=== PATIENT | male | born 1980 | race Caucasian/White ===

== ENCOUNTER 2020-11-28 08:43 | Outpatient (CLI) | payer MEDICARE, SELFPAY ==
[2020-11-28] MEDS: iohexol 300 mg/mL 100 mL Btl IV (09:59)
--- NOTE | 2020-11-28 10:00 | CT_ITS ---
WS: [id number] CT ABDOMEN AND PELVIS WITH CONTRAST HISTORY: K43.9 - Ventral hernia without obstruction or gangrene TECHNIQUE: Imaging performed of the abdomen and pelvis with IV contrast. Single phase imaging of the abdomen. Coronal and sagittal reformats are submitted. All CT scans at [facility] use at least one of these dose optimization techniques: automated exposure control; mA and/or kV adjustment per patient size (includes targeted exams where dose is matched to clinical indication); or iterativ e reconstruction. IV CONTRAST: Omnipaque 300; 95 mL IV. Oral contrast: Yes. DLP: 1140.88 mGycm COMPARISON: None available. Lower thorax: Linear scar or atelectasis at the RIGHT lung base. Heart is normal size. No hiatal saray ia. Liver/biliary system: Normal size liver. Low-attenuation 8 mm nodule in the central liver is probably small cysts. Portal vein is patent. No bile duct dilatation. Gallbladder: Gallbladder is slightly contracted. Within the gallbladder there is an enhancing nodule measuring 4.7 mm. No adjacent inflammation. Pancreas: Normal. Spleen: Normal. Adrenal glands: Normal. Right kidney: Normal size kidney. Cyst in the mid kidney measures 2.0 cm. There is a nonobstructing c alcification in the mid kidney measuring 5 mm. No solid mass or obstruction. Left kidney: Normal. Aorta: Mild atherosclerosis with no aneurysm. Lymphadenopathy: None. Free fluid: None. GI tract: No GI tract obstruction. The appendix is normal. Postsurgical changes are noted in the sigm oid. There is no obstructive pattern. No soft tissue mass or significant diverticular disease. Abdominal wall: Ventral abdominal wall hernia contains fat only. Hernia extends over length of 6 cm. Several small defects within the abdominal wall. No definite inflammatory changes within the omental fat. No abscess. Pelvis: Normal. Bones: Prior posterior lumbar fusion at L3-4. Mild RIGHT scoliosis of the lumbar spine. CT/CT abdomen pelvis w con* [id number] IMPRESSION: 1. Hepatic and RIGHT renal cysts. 2. Slightly contracted gallbladder with enhancing nodule measuring 5 mm. Recom mend follow-up gallbladder ultrasound for further evaluation. Polyp or neoplasm or adherent gallstone within the differential. 3. Postsurgical changes in the sigmoid with no mass or obstruction. 4. Ventral abdominal wall omental hernias. 5. Negative appendix.
== END 2020-11-28 08:44 | disposition home or self-care (01) ==
LOC: RADWPI 08:49
PROVIDERS: PCP Family Medicine; Visit Provider Surgery
DX: K43.9 Ventral hernia without obstruction or gangrene (principal); K76.89 Other specified diseases of liver; Q61.02 Congenital multiple renal cysts
CPT/HCPCS: 74177; Q9967

== ENCOUNTER 2020-12-18 07:55 | Outpatient (CLI) | payer MEDICARE, SELFPAY ==
--- NOTE | 2020-12-18 08:45 | US_ITS ---
WS: [id number] RIGHT UPPER QUADRANT ULTRASOUND HISTORY: R10.9 - Unspecified abdominal pain COMPARISON: CT 11/28/2020 Liver: 18.1 cm in length. Mildly enlarged liver. Cyst is not identified within the liver. No bile magalie t dilatation. Gallbladder: Normally distended gallbladder. There is a soft tissue nodule towards the fundus of the gallbladder measuring 1.0 x 1.0 x 0.8 cm. Broad-based attachment to the wall of the gallbladder. Ther e is increased vascularity within this nodule. There is also a ring down artifact in the wall of the gallbladder suggesting adenomyomatosis. CBD: 0.2 cm Pancreas: Poorly visualized due to bowel gas. Right kidney: 11.3 cm in length. Normal size kidney. Simple cyst in the upper pole measures 1.5 x 1.8 x 1.6 cm. No hydronephrosis. Aorta and IVC: Unremarkable abdominal aorta and IVC. No ascites. US/US gall bladder [id number] IMPRESSION: 1. Gallbladder mass is probably a polyp. Due to its size consider surgical rem oval to exclude neoplasm. 2. Ring down artifact in the gallbladder wall suggesting adenomyomatosis. No c holelithiasis. 3. RIGHT renal cyst.
== END 2020-12-18 07:56 | disposition home or self-care (01) ==
LOC: US 08:00
PROVIDERS: PCP Family Medicine; Visit Provider Surgery
DX: R10.9 Unspecified abdominal pain (principal); N28.1 Cyst of kidney, acquired
CPT/HCPCS: 76705

== ENCOUNTER → 2021-01-01 10:45 | Outpatient (BNVA) | payer MEDICARE, SELFPAY | PROVIDERS: PCP Family Medicine; Visit Provider Surgery | DX: K82.4 Cholesterolosis of gallbladder (principal) | CPT/HCPCS: 80053; 85007; 85027 ==

== ENCOUNTER → 2021-01-11 09:58 | Outpatient (BNVA) | payer MEDICARE, SELFPAY | PROVIDERS: PCP Family Medicine; Visit Provider Surgery | DX: K82.4 Cholesterolosis of gallbladder (principal); Z20.822 Contact with and (suspected) exposure to COVID-19 | CPT/HCPCS: 87635 ==

== ENCOUNTER 2021-01-16 06:16 | Day surgery (SDC) | payer MEDICARE, SELFPAY ==
[2021-01-15 15:56] VITALS: BMI 26.6
[2021-01-16] VITALS (7 sets, daily range): BP systolic 117–143; BP diastolic 64–96; PULSE 66–83; RESP 16–18; TEMP 36.1–36.6; O2SAT 93–98
[2021-01-16] MEDS: acetaminophen 1,000 MG/100 ML PIGGYBACK 400 MG IV (06:45)
--- NOTE | 2021-01-16 06:51 | ANES.PREANE2 ---
Pre-Anesthetic Assessment Pre-Anesthetic Assessment: Height/Weight: Height 1.73 m Weight 79.379 kg Temp Pulse Resp BP Pulse Ox 97.8 F 83 18 117/64 96 01/16/21 06:30 01/16/21 06:30 01/16/21 06:30 01/16/21 06:30 01/16/21 06:30 Preop Diagnosis: Gallbladder polyp Proposed Procedure: Operation Date: 01/16/21 08:00 Proposed Procedures p Laparoscopic Cholecystectomy 83263 K82.4(Not Applicable) - Zeke Hill MD Familial anesthetic complications: None Was Beta Sivan taken within 24 hours: N/A (Takes metoprolol prn for anxiety/palpitations (maybe 1x a week, 1x a month)) Was Clonidine taken within 24 hours: N/A Last intake: black coffee 023 Social: Social History: Tobacco and No alcohol Exam: Pre-Anes Outpt Exam: alert, oriented x 3, clear to auscultation bilaterally and regular rate & rhythm Airway: Cervical ROM: WNL MP: 3 Dentition: Full Additional comments: garcia CV/HEM: CV/HEM: HTN Neuropsych: Neuropsych: Anxiety Anesthetic Plan: ASA status: 2 Anesthesia: General Risk of > 500 ml blood loss (7ml/kg in children): No PFSH Anesthesia PFSH: Medical History Anxiety Diverticulitis Hernia HTN (hypertension) Skin cancer of face Surgical History History of back surgery Family History Father Cancer Grandmother Cancer Other Diabetes Social History Smoking and tobacco status: current every day smoker cigarettes Packs smoked per day: 0.5 Years cigarettes smoked: 22 Alcohol intake: never Lives independently: Yes Marital status: Single Number of children: 0 Current occupational status: disabled Data Anesthesia Cardiac Studies: No Data to Display
[2021-01-16] MEDS: sodium chloride 0.9% 1,000 ML 30 ML IV (07:22)
--- NOTE | 2021-01-16 08:16 | W.PM.OPSUD ---
Surgery/Procedure H&P Update DATE OF PROCEDURE: January 16, 2021 DATE H&P PERFORMED: 12/28/20 H&P UPDATE INFORMATION: I have reviewed H&P completed within last 30 days, I have examined patient prior to procedure and No changes to prior documentation PREOP DIAGNOSIS: Gallbladder polyp PRIMARY INDICATION FOR PROCEDURE: THE SAME PLANNED PROCEDURE: Operation Date: 01/16/21 08:00 Proposed Procedures p Laparoscopic Cholecystectomy 00512 K82.4(Not Applicable) - Zeke Hill MD
[2021-01-16] MEDS: ampicillin-sulbactam 3 GM in sodium chloride 0.9% (plus) 50 ML IV (08:21)
[2021-01-16] MEDS: lidocaine 2% INJ 20 mL INJECTION (09:12)
--- NOTE | 2021-01-16 09:22 | PM.OP ---
Operative Report Date of procedure: January 16, 2021 Pre-op Diagnosis: Gallbladder polyp Post-op Diagnosis: Chronic calculus cholecystitis Ventral incisional hernia without complication Procedure Done: Laparoscopic cholecystectomy Specimens removed/disposition: Gallbladder and contents Surgeon: Zeke Hill Sharepoint Administrator: Surgical yanely Zavala Circulating nurse Brittney Lawrence Anesthesia: General (Cayden Marrero) Estimated blood loss (mL): 10 IV fluids (mL): 1,000 Condition: stable Disposition: same day Brief History: Symptomatic gallbladder disease. Full H&P and informed consent per chart Procedure: Patient was identified in the holding area and taken back to the operative suite, placed in supine position intubated by anesthesia . Time-out was done verifying the patient's name/date of /planned procedure and destination after the procedure, all were in agreement. SCDs confirmed to be functioning, preoperative antibiotics administered per protocol, and beta mane protocol was confirmed. Patient was appropriately secured to the table, footboard was applied to the OR table, before prep and drape anesthesia was asked to tilt the table back and forth to make sure that the patient is appropriately secured and she was. Prep and drape of the abdomen was done under the usual sterile technique, followed by that left upper quadrant incision to accommodate a 5 mm Optiview trocar with a 0 degree 5 mm scope following gas insufflation, I elected that approach because of the patient's previous history of ventral incisional hernia and to avoid adhesions. I was able to enter the peritoneal cavity safely without injury to underlying structures or bleeding. Following that under direct visualization Flores trocar was inserted above the previous adhesions mentioned of the hernia A 10 mm laparoscope 30 degree under direct visualization 5 millimeter trocar was inserted in the epigastric region followed by an at the 5 mm trocar were inserted in the right upper quadrant that was done after injection of local lidocaine 2% at all incision sites. Gallbladder showed chronic calculus cholecystitis with adhesions Patient was then positioned in the head up and tilted to the left Ratcheted forceps were introduced into the lateral most 5mm port and was applied unto the fundus of the gallbladder cephalad and using Bullet forceps the infundibulum of the gallbladder was retracted laterally. Using [place] forceps then L-hook cautery to dissect the peritoneum overlying the Calot's triangle which was then opened medially and laterally until the cystic duct and the cystic artery were skeletonized. Dissection was carried along the body of the gallbladder and after ensuring critical view of safety was identfied. Cystic duct and cystic artery where seen connected to the gallbladder. Clips were applied on the cystic duct towards the common bile duct 1 towards the gallbladder then divided is in sharp scissors, 2 clips were then applied onto the cystic artery and 1 towards the gallbladder and divided by sharp scissors. Dissection was then carried along of the gallbladder from the gallbladder fossa using cautery as well as sharp dissection with heat energy. The gallbladder then was dissected out from the gallbladder fossa totally , cholecystectomy was then achieved and was placed in an Endo Catch bag and then retrieved from the Flores trocar site under direct visualization using a 5 mm 30? scope through the epigastric trocar, specimen was then passed to the circulating nurse to go for permanent pathology,irrigation and hemostasis was done to the gallbladder fossa after hemostasis was secured, final survey laparoscopy was done that showed no injuries. 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 Gas was allowed to deflate,Trocars were then taken out under direct vision there was no evidence of bleeding Specimen was passed to the circulating nurse for permanent pathology. No drains were placed and the supraumbilical incision as well as all trocar sites were closed by 3-0 Vicryl followed by 4-0 Monocryl to approximate the skin edges of the supraumbilical incision, dressing was applied in the form of Dermabond and the patient patient got extubated and was taken to recovery area in a stable condition. Count of sponges, needles and instruments were completed at the end of the procedure I was present for the whole entire procedure.
--- NOTE | 2021-01-16 14:19 | ANE.PACU2 ---
Inpatient post-anesthesia follow up: Airway intact: Yes Vital signs: Temperature 97 F Pulse Rate 81 Respiratory Rate 18 Blood Pressure 119/81 Pulse Oximetry 96 Oxygen Delivery Me thod Room Air Oxygen Flow Rate 8 Fraction of Inspir ed Oxygen Hydration adequate: Yes Nausea and vomiting: No Pain level: 2 Mental status: Baseline
== END 2021-01-16 10:51 | disposition home or self-care (01) ==
PROVIDERS: PCP Family Medicine; Visit Provider Surgery
PROC: 0FT44ZZ Resection of Gallbladder, Percutaneous Endoscopic Approach (ICD-10-PCS; CPT 47562; principal; 2021-01-16 08:00)
DX: K80.10 Calculus of gallbladder with chronic cholecystitis without obstruction (principal); K43.2 Incisional hernia without obstruction or gangrene; I10 Essential (primary) hypertension; F41.9 Anxiety disorder, unspecified; F17.210 Nicotine dependence, cigarettes, uncomplicated
CPT/HCPCS: 47562; 49560; 88304; 96365; J0295; J0330; J2250; J2370; J2704; J2710; J3010; J3490; J7030

== ENCOUNTER → 2021-06-04 10:06 | Outpatient (BNVA) | payer MEDICARE, SELFPAY | PROVIDERS: PCP Family Medicine; Visit Provider Family Medicine | DX: I10 Essential (primary) hypertension (principal); K57.92 Diverticulitis of intestine, part unspecified, without perforation or abscess without bleeding; G89.29 Other chronic pain; M54.5 Low back pain; Z79.899 Other long term (current) drug therapy | CPT/HCPCS: 80053; 80061; 82306; 82607; 83735; 84443; 85025 ==

== ENCOUNTER → 2021-06-14 14:23 | Outpatient (BNVA) | payer MEDICARE, SELFPAY | PROVIDERS: PCP Family Medicine; Visit Provider Orthopaedic Surgery | DX: Z47.89 Encounter for other orthopedic aftercare (principal); Z98.1 Arthrodesis status | CPT/HCPCS: 72110 ==

== ENCOUNTER 2021-07-12 13:32 | Emergency (ER) | payer MEDICARE, SELFPAY ==
[2021-07-12 13:38] VITALS: BP 125/72; PULSE 88; RESP 16; TEMP 37.6; O2SAT 97
[2021-07-12 13:50] VITALS: BP 118/77; PULSE 83; RESP 16; TEMP 36.7; O2SAT 97
--- NOTE | 2021-07-12 14:00 | PC.NURSE ---
Pt arrived via POV with family at bedside. Pt states about a week ago one of his bottom teeth cracked and fell out, since then pt has been trying to get in to see a local dentist, however, there are no available appointments for at least 2 weeks. Pt rpeorts jaw pain, states it feels like he is being stabbed in the mouth. Pt reports the pain radiates up the left side of his face, into his nose, across his forhead and into his head. Pt rates pain 5/10. Vss, pt placed on monitor.
--- NOTE | 2021-07-12 14:02 | W.ED.GENADLT ---
HPI - General Adult General: Chief complaint: General Medical Stated complaint: Broke tooth on left side Time Seen by Provider: 07/12/21 13:42 History of Present Illness: HPI narrative: Patient is a 41-year-old male comes to the ED with dental pain. Patient has a tooth that broke over a week ago when today he noticed he started having radiating into his jaw. Broken tooth is left lower molar. He has been calling around to get an appointment set up with the dentist and he said he has one scheduled for about 2 weeks from now. Associated symptoms: Deny chest pain, dyspnea, headache(s), nausea, rash, palpitations or vomiting Review of Systems Const: Denies: fever(s), chills or fatigue Eyes: Denies: change in vision or eye discomfort ENMT: Reports: dental pain; Denies: throat pain, odynophagia, nasal discharge or nasal congestion Card: Denies: chest pain, palpitations, edema, swelling of feet/ankles, dyspnea on exertion or orthopnea Resp: Denies: dyspnea, productive cough or non-productive cough GI: Denies: abdominal pain, nausea, vomiting, diarrhea, constipation or hematochezia : Denies: flank pain, difficulty urinating, dysuria or hematuria Musc: Denies: neck pain, back pain or extremity swelling Skin/Breast: Denies: rash or new lesions Neuro: Denies: headache(s), numbness in extremities or weakness in extremities PFSH ED PFSH: Medical History Anxiety Diverticulitis Gallbladder polyp Hernia History of nonmelanoma skin cancer HTN (hypertension) Skin cancer of face Ventral hernia Surgical History History of back surgery History of bowel resection 2019 History of cholecystectomy 2020 History of colonoscopy 2016 History of umbilical hernia repair 2019 Family History Father Cancer Grandmother Cancer Other Diabetes Social History Smoking and tobacco status: current every day smoker cigarettes Packs smoked per day: 0.5 Years cigarettes smoked: 22 Second hand smoke exposure: Yes Alcohol intake: never Lives independently: Yes Marital status: Single Number of children: 0 service: No Current occupational status: disabled History of recent travel: No Current gender identity: Male Special elmo needs: No Physical Exam Const: COMMON NORMALS: no acute distress, patient oriented x3 and alert GENERAL APPEARANCE: cooperative and comfortable HENMT: COMMON NORMALS: normocephalic HEAD & SCALP: normocephalic MOUTH: Normal oral and palatal mucosa present TEETH & GINGIVA: Yes abnormal tooth and associated gingiva lower left third molar tender, with associated gingival edema and with associated gingival fluctuance, Yes caries and Yes poor dentition THROAT: posterior oropharynx normal and uvula midline Eye: COMMON NORMALS: Equal, round and reactive pupils present PUPIL: Yes Equal, round and reactive pupils present Neck/C-Spine: COMMON NORMALS: supple GENERAL: Yes normal visual inspection Resp: COMMON NORMALS: normal respiratory effort, No retractions, No use of accessory muscles and clear to auscultation bilaterally AUSCULTATION: clear to auscultation bilaterally Cardio: COMMON NORMALS: regular rate, regular rhythm, S1 normal heart sound present, S2 normal heart sound present, No gallops present (Cardio), No clicks present (Cardio), No murmurs present (Cardio) and Peripheral pulses 2+ throughout RATE: regular rate RHYTHM: regular rhythm HEART SOUNDS: S1 normal heart sound present and S2 normal heart sound present PERIPHERAL PULSES: Peripheral pulses 2+ throughout GI: COMMON NORMALS: Normal to inspection, nondistended, normoactive bowel sounds present, Soft to palpation, non-tender and no masses PALPATION: Yes Soft to palpation : COMMON NORMALS: Yes no CVA tenderness BLADDER/KIDNEY EXAM: Yes no CVA tenderness Back/Pelvis: COMMON NORMALS: no CVA tenderness Extremity: COMMON NORMALS: normal to inspection Neuro: COMMON NORMALS: patient oriented x3 SENSORIUM/ORIENTATION: Yes alert Skin: GENERAL SKIN EXAM: dry skin Course Vital Signs: Vital signs: Vital Signs Temperature 98.1 F 07/12/21 13:50 Pulse Rate 83 07/12/21 13:50 Respiratory Rate 16 07/12/21 13:50 Blood Pressure 118/77 07/12/21 13:50 Pulse Oximetry 97 07/12/21 13:50 MDM - General Adult MDM Narrative: Medical decision making narrative: Patient is a 41-year-old male who comes to the ED with dental pain. He has an appointment with the dentist in 2 weeks. Patient was discharged home with a prescription for clindamycin, ibuprofen and a couple hydrocodone to help with acute pain. Return to ED precautions given. Patient understood and agreed with plan. Discharge Plan Discharge Patient Disposition: Home Clinical Impression: Pain, dental Condition: Stable Prescriptions: New clindamycin HCl 150 mg capsule 300 mg PO QID 7 Days Qty: 56 RF: 0 ibuprofen 800 mg tablet 800 mg PO Q8H PRN (Reason: pain) Qty: 20 RF: 0 No Action ketoconazole 2 % cream 1 applic topical BID Qty: 60 RF: 2 topiramate 50 mg cap,sprinkle,ER 24hr dose pack 50 mg PO DAILY PRNRF: 0 metoprolol succinate 25 mg tablet extended release 24 hr 25 mg PO DAILY PRN (Reason: Anxiety) RF: 0 cholecalciferol (vitamin D3) 1,250 mcg (50,000 unit) capsule 50,000 unit PO .weekly Qty: 4 RF: 2 Excedrin Migraine 250-250-65 mg Tablet 1 tab PO Q6H PRN (Reason: Migraine Headache) RF: 0 Advil Cold and Sinus 30-200 mg Capsule 1 cap PO BID PRN (Reason: Allergy Symptoms) RF: 0 Endocet 5-325 mg Tablet 1 tab PO Q4H PRN (Reason: Pain) RF: 0 hydrocodone-acetaminophen 5-325 mg tablet 1 tab PO Q6H PRN (Reason: pain) Qty: 28 RF: 0 Discharge Orders: Discharge ED (Routine); Ordered 07/12/21 Ordered By: Harshal Díaz Referrals: Aracelis Blanco MD [Primary Care Provider] - Discharge Diet: Regular Discharge Activity: Resume usual activity Patient Instructions: Dental Caries (Cavities), Toothache (ED), Opioid Safety Activity Restrictions/Additional Instructions: Follow-up with medical provider as directed. Contact dentist and set up appoint with them for further evaluation of dental pain as soon as possible. Take medications as prescribed. Return to the ER or your medical provider if condition worsens. Please read and understand discharge instructions. Thank you for choosing [facility] for your healthcare needs today. Please realize this is an emergency room and that we are providing you with a medical screening exam and this may not be complete and all inclusive of all the testing and or work up that you may need to determine your ailment or severity of your illness. It is very important that you follow up as instructed or that you return to the Emergency Department should you have concerns or if your condition changes or worsens in any way. Coding Level of Care Code ED Director Of Catering Sales for Tamara Cortez Exam Comprehensive
[2021-07-12] MEDS: HYDROcodone-acetaminophen 7.5-325 mg Tablet 1 TAB PO (14:05)
[2021-07-12] MEDS: clindamycin 150 mg Capsule 300 MG PO (14:07)
== END 2021-07-12 14:24 | disposition home or self-care (01) ==
PROVIDERS: Emergency Provider Physician Assistant; PCP Family Medicine
DX: K08.89 Other specified disorders of teeth and supporting structures (principal); I10 Essential (primary) hypertension; F17.210 Nicotine dependence, cigarettes, uncomplicated
CPT/HCPCS: 99283

== ENCOUNTER 2021-08-22 12:29 | Outpatient (CLI) | payer MEDICARE, SELFPAY ==
--- NOTE | 2021-08-22 13:15 | ECG_ITS ---
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 Interpretive Statements NAME OF STUDY: DOBUTAMINE STRESS ECHOCARDIOGRAM INDICATION: Chest pain, family history of CAD PROCEDURE: At the baseline, the blood pressure was 126/71 mmHg, oxygen saturation 95% with a heart rate of 81 bpm. The electrocardiogram showed sinus rhythm, normal axis with nonspecific T wave changes. The dobutamine was infused over a period of 8-minute 34 seconds. The maximum heart rate obtained was 153 (86% of the maximum predicted heart rate). The blood pressure at that time was 134/83 mmHg. The patient did not have any chest pain with the dobutamine infusion. There was upsloping half to [address] segment depression in inferolateral leads. The physical examination remained unchanged. No arrhythmias were seen on the monitor. During the recovery phase, the patient did not have any specific symptoms. The blood pressure at the end of the recovery phase was 127/77 mmHg, oxygen saturation 93% with a heart rate of 89 beats per minute. CONCLUSION: 1. Normal EKG response to dobutamine infusion. 2. Normal blood pressure and heart rate response to dobutamine infusion. 3. Functional status could not be assessed due to pharmacological protocol. 4. Echocardiographic portion of the study pending; see separate report. Electronically Signed On 08-27-2021 19:02:20 CANE SPLICER by Edna Vergara M.D. [id number]
--- NOTE | 2021-08-22 13:28 | USCV_ITS ---
CesarDakotaa Age: 41 Gender: M : 1980 Exam Date: 08/22/2021 13:30 Ordering Phys: Edna Vergara MD ([email or web address]) Technologist: RENE Exam Location: [facility] [place] Indication: Chest pain, Family Hx of CAD Rhythm: Sinus Patient History: Family history, Chest pain Cardiac Medications: Metoprolol as needed per patient Medications in past 24 hours: None Contrast: Stress Results Protocol: Stanley Total dose(mL): Exercise Duration (min:sec): 8:34 METS: 1.0 Resting HR: 77 Resting BP: 126 / 71 Peak HR: 153 Peak BP: 158 / 91 Max Predicted HR: 177 86 % Max Predicted HR Target HR: 150 Double Product: 14936 Stress Summary: The patient's target heart rate was achieved BP Response: Normal Reason for Termination: Test terminated after reaching target heart rate (85% max predicted) Cardiac Symptoms: None ECG Analysis Resting ECG: Stress ECG: Arrhythmia: MEASUREMENTS (Male/Female) Normal Values FINDINGS 1. At the baseline, the patient's blood pressure was 126/71 mmHg with a heart rate of 81 beats per minute and oxygen saturation 95%. The electrocardiogram showed normal sinus rhythm with normal ST-Ts. The chest examination revealed normal breath sounds with no rales or rhonchi. The CVS examination revealed normal heart sounds. 2. The Dobutamine was infused over 8 minutes and 34 seconds. The maximum heart rate obtained was 153 beats per minute. The patient attained 86% of the maximum predicted heart rate. The blood pressure at the end of the infusion was 158/91 mmHg. Patient did not have any chest pain or any significant electrocardiogram changes with the Dobutamine infusion. The physical examination remained unchanged. No arrhythmias were seen on the monitor. 3. At the baseline, the patient's echocardiogram revealed normal cardiac chamber sizes with normal LV ejection fraction of 60%. Segmental wall motion analysis revealed no regional wall motion abnormality. There were no intracardiac masses. No significant pericardial effusion. Aortic root appears to be upper limits of normal size. 4. With the low and the peak Dobutamine infusion, there was good augmentation of all the segments with no Dobutamine-induced wall motion abnormalities. 5. During the recovery phase, the patient did not have any symptoms or any EKG changes. 6. The echocardiogram during the recovery phase also did not reveal any new changes. CONCLUSIONS 1. Normal electrocardiogram response to Dobutamine infusion. 2. Normal echocardiographic response to Dobutamine infusion. 3. No Dobutamine-induced chest pain or cardiac arrhythmia. 4. Clinical correlation is recommended. Edna Vergara MD (Electronically Signed) Final Date: 27 August 2021 19:07 S
[2021-08-22 13:46] VITALS: BMI 27.3
[2021-08-22] MEDS: DOBUTamine drip 500 MG/250 ML PREMIX 24 MG IV (13:52)
[2021-08-22 14:15] VITALS: BP 127/77; PULSE 91
== END 2021-08-22 12:30 | disposition home or self-care (01) ==
LOC: CDL 12:31
PROVIDERS: PCP Family Medicine; Visit Provider Internal Medicine Cardiovascular Disease
DX: R07.9 Chest pain, unspecified (principal); Z82.49 Family history of ischemic heart disease and other diseases of the circulatory system
CPT/HCPCS: 93017; 93350; J1250

== ENCOUNTER 2021-10-31 20:07 | Emergency (ER) | payer MEDICARE, SELFPAY ==
[2021-10-31 20:14] VITALS: BP 137/63; PULSE 90; RESP 20; TEMP 36.6; O2SAT 99; BMI 26.6
--- NOTE | 2021-10-31 20:26 | XRR_ITS ---
PROCEDURE INFORMATION: Exam: XR Chest Exam date and time: 10/31/2021 8:26 PM Age: 41 years old Clinical indication: Cough; Additional info: SOB, cough, coughed up blood one hour ago TECHNIQUE: Imaging protocol: XR of the chest. Views: 1 view. COMPARISON: CT abdomen pelvis w con* [id number] 11/28/2020 9:48 AM FINDINGS: Lungs: Unremarkable. No consolidation. Pleural spaces: Unremarkable. No pleural effusion. No pneumothorax. Heart/Mediastinum: Unremarkable. No cardiomegaly. Bones/joints: Unremarkable. XR/XR chest 1V portable [id number] IMPRESSION: No acute findings.
--- NOTE | 2021-10-31 20:26 | ECG_ITS ---
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 Measurements Intervals [place] Rate: 89 P: 48 CT: 121 QRS: 69 QRSD: 93 T: 57 QT: 346 QTc: 423 Interpretive Statements SINUS RHYTHM No previous ECG available for comparison Electronically Signed On 11-01-2021 11:02:50 FILLING AND PACKING SUPERVISOR by Edna Vergara M.D. [id number]
[2021-10-31 21:42] LABS: Basophils # 0.1 10^3/uL (0.0-0.1); Basophils % 0.7 %; Eosinophils # 0.1 10^3/uL (0.0-0.8); Eosinophils % 1.4 %; Hematocrit 45.2 % (42.0-52.0); Hemoglobin 15.5 g/dL (11.7-16.6); Lymphocytes # 1.9 10^3/uL (0.8-4.8); Lymphocytes % 26.8 %; Mean Corpuscular HGB Conc 34.3 g/dL (30.0-36.0); Mean Corpuscular Hemoglobin 30.1 pg (28.0-34.0); Mean Corpuscular Volume 87.8 fl (80-94); Mean Platelet Volume 10.1 fL (7.4-10.4); Monocytes # 0.5 10^3/uL (0.2-0.9); Monocytes % 6.7 %; Neutrophils # 4.42 10^3/uL (1.8-7.7); Neutrophils % 64.1 %; Nucleated Red Blood Cells % 0 %; Platelet Count 239 10^3/cmm (130-400); Red Blood Count 5.15 10^6/uL (4.1-5.3); Red Cell Distribution Width 12.8 % (12.1-15.1); White Blood Count 6.9 10^3/uL (4.0-10.0)
[2021-10-31 22:12] LABS: INR 0.98 (0.8-1.2)
[2021-10-31 22:15] LABS: D Dimer 0.33 ug/mIFEU (0-0.59)
[2021-10-31 22:16] LABS: Troponin(5th) Baseline 8 ng/L (0-15)
--- NOTE | 2021-10-31 22:26 | ECG_ITS ---
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
--- NOTE | 2021-10-31 22:27 | ED_ITS ---
HPI - General Adult General: Chief complaint: General Medical Stated complaint: coughing up blood Time Seen by Provider: 10/31/21 22:27 History of Present Illness: 41-year-old male patient comes in today with complaints of cough with blood-tinged sputum. Patient reports last night he felt congestion and rattling in his throat and he coughed up a what he thought was a blood clot. Patient then again this evening had a similar episode. Patient has a history of a blood clot which she had been on blood thinners for in the past. Patient denies any use of blood thinners at this time or aspirin. Patient does report some sinus symptoms with cough. Onset (ago): hour(s) Exacerbating factors: none Review of Systems Resp: Reports: hemoptysis PFSH ED PFSH: Medical History Anxiety Diverticulitis Gallbladder polyp Hernia History of nonmelanoma skin cancer HTN (hypertension) Skin cancer of face Ventral hernia Surgical History History of back surgery History of bowel resection 2019 History of cholecystectomy 2020 History of colonoscopy 2016 History of umbilical hernia repair 2019 Family History Father Cancer Grandmother Cancer Other Diabetes Social History Second hand smoke exposure: Yes Alcohol intake: never Lives independently: Yes Marital status: Single Number of children: 0 service: No Current occupational status: disabled History of recent travel: No Current gender identity: Male Special lemo needs: No Physical Exam Const: COMMON NORMALS: alert HENMT: COMMON NORMALS: Normal nasal mucous membranes and turbinates present NOSE: Normal nasal mucous membranes and turbinates present; no Epistaxis present MOUTH: Normal oral and palatal mucosa present THROAT: posterior oropharynx normal Neck/C-Spine: COMMON NORMALS: full ROM, no lymphadenopathy and no JVD Resp: COMMON NORMALS: normal respiratory effort and clear to auscultation bilaterally AUSCULTATION: clear to auscultation bilaterally Cardio: COMMON NORMALS: no JVD, regular rate and regular rhythm RATE: regular rate RHYTHM: regular rhythm Extremity: COMMON NORMALS: normal to inspection and no pedal edema Neuro: SENSORIUM/ORIENTATION: Yes alert Psych: COMMON NORMALS: cooperative Skin: COMMON NORMALS: no rashes or lesions noted GENERAL SKIN EXAM: no rashes or lesions noted Course Vital Signs: Vital signs: Vital Signs Temperature 97.8 F 10/31/21 20:14 Pulse Rate 90 10/31/21 20:14 Respiratory Rate 20 H 10/31/21 20:14 Blood Pressure 137/63 10/31/21 20:14 Pulse Oximetry 99 10/31/21 20:14 [facility] - General Adult Medical Decision Making 41-year-old male comes in today with complaints of cough with bloody sputum. On exam his nares are clear without any signs of bleeding. Posterior pharynx is normal. No lymphadenopathy is noted. Lungs are clear to auscultation. Skin is warm and dry. Vital signs are normal. Differential diagnosis includes pulmonary embolism, pneumonia, lung or other cancer, epistaxis, GI bleed. Laboratory values were normal. D-dimer was negative. Troponins were negative. Chest x-ray showed no acute abnormality. I will place patient on some doxycycline for a possible respiratory infection causing blood-tinged sputum or epistaxis. I will have patient follow-up with pulmonology for bronchoscopy to evaluate for other causes of hemoptysis. I refilled patient's pantoprazole which he uses occasionally for GERD. Patient will follow up with primary care in the morning for further evaluation and consideration of other treatment options. Lab Data : 10/31/21 21:33 10/31/21 21:33 Radiology Impressions Chest X-Ray 10/31/21 20:26 IMPRESSION: No acute findings. Laboratory Results WBC 6.9 10^3/uL (4.0-10.0) 10/31/21 21: RBC 5.15 10^6/uL (4.1-5.3) 10/31/21 21:33 Hgb 15.5 g/dL (11.7-16.6) 10/31/21 21:33 Hct 45.2 % (42.0-52.0) 10/31/21 21:33 MCV 87.8 fl (80-94) 10/31/21 21: MCH 30.1 pg (28.0-34.0) 10/31/21 21: MCHC 34.3 g/dL (30.0-36.0) 10/31/21 21:33 RDW 12.8 % (12.1-15.1) 10/31/21 21:33 Plt Count 239 10^3/cmm (130-400) 10/31/21 21:33 MPV 10.1 fL (7.4-10.4) 10/31/21 21:33 Neut % (Auto) 64.1 % 10/31/21 21: Lymph % (Auto) 26.8 % 10/31/21 21:33 Sumner % (Auto) 6.7 % 10/31/21 21:33 Eos % (Auto) 1.4 % 10/31/21 21:33 Baso % (Auto) 0.7 % 10/31/21 21: Neut # (Auto) 4.42 10^3/uL (1.8-7.7) 10/31/21 21: Lymph # (Auto) 1.9 10^3/uL (0.8-4.8) 10/31/21 21:33 Sumner # (Auto) 0.5 10^3/uL (0.2-0.9) 10/31/21 21:33 Eos # (Auto) 0.1 10^3/uL (0.0-0.8) 10/31/21 21:33 Baso # (Auto) 0.1 10^3/uL (0.0-0.1) 10/31/21 21:33 Nucleated RBC % (auto) 0 % 10/31/21 21: Nucleated RBCs # 0.0 /100WBC 10/31/21 21:33 PT 13.30 SECONDS (12.1-14.9) 10/31/21 21:48 INR 0.98 (0.8-1.2) 10/31/21 21:48 D-Dimer 0.33 ug/mIFEU (0-0.59) 10/31/21 21:48 Sodium 136 mmol/L (136-145) 10/31/21 21:33 Potassium 3.9 mmol/L (3.5-5.1) 10/31/21 21:33 Chloride 101 mmol/L (98-107) 10/31/21 21:33 Carbon Dioxide 22 mmol/L (22-29) 10/31/21 21:33 Anion Gap 16.9 (5-19) 10/31/21 21:33 BUN 13 mg/dL (6-20) 10/31/21 21:33 Creatinine 0.8 mg/dL (0.7-1.2) 10/31/21 21:33 GFR Calculation 105.5 mL/min (90-130) 10/31/21 21:33 Glucose 66 mg/dL (65-115) 10/31/21 21:33 Calculated Osmolality 280 mOsm/kg (285-295) L 10/31/21 21:33 Calcium 10.3 mg/dL (8.5-10.5) 10/31/21 21:33 Total Bilirubin 0.2 mg/dL (0.15-1.2) 10/31/21 21:33 AST 19 U/L (0-40) 10/31/21 21:33 ALT 21 U/L (0-41) 10/31/21 21:33 Alkaline Phosphatase 76 IU/L (40-130) 10/31/21 21:33 Troponin T Baseline 8 ng/L (0-15) 10/31/21 21:33 NT-Pro-B Natriuret Pep 14 pg/mL (0-125) 10/31/21 21:33 Total Protein 6.7 g/dL (6.6-8.7) 10/31/21 21:33 Albumin 4.8 g/dL (3.5-5.2) 10/31/21 21:33 Globulin 1.9 g/dL (1.3-4.6) 10/31/21 21:33 Discharge Plan Discharge Patient Disposition: Home Clinical Impression: Cough with hemoptysis Condition: Stable Prescriptions: New doxycycline monohydrate 100 mg tablet 100 mg PO BID 7 Days Qty: 14 0RF pantoprazole 40 mg tablet,delayed release (DR/EC) 40 mg PO DAILY Qty: 30 0RF Rx Instructions: take 30 minutes before first meal of the day No Action ketoconazole 2 % cream 1 applic topical BID Qty: 60 2RF Rx Instructions: x 4-6 weeks topiramate 50 mg cap,sprinkle,ER 24hr dose pack 50 mg PO DAILY PRN0RF metoprolol succinate 25 mg tablet extended release 24 hr 12.5 mg PO DAILY Qty: 45 2RF cholecalciferol (vitamin D3) 1,250 mcg (50,000 unit) capsule 50,000 unit PO .weekly Qty: 4 2RF Excedrin Migraine 250-250-65 mg Tablet 1 tab PO Q6H PRN (Reason: Migraine Headache) 0RF Advil Cold and Sinus 30-200 mg Capsule 1 cap PO BID PRN (Reason: Allergy Symptoms) 0RF Endocet 5-325 mg Tablet 1 tab PO Q4H PRN (Reason: Pain) 0RF hydrocodone-acetaminophen 5-325 mg tablet 1 tab PO Q6H PRN (Reason: pain) Qty: 28 0RF ibuprofen 800 mg tablet 800 mg PO Q8H PRN (Reason: pain) Qty: 20 0RF Discharge Orders: Discharge ED (Routine); Ordered 10/31/21 Ordered By: Dominick Steen Referrals: Aracelis Blanco MD [Primary Care Provider] - Discharge Diet: Low Fat Discharge Activity: Increase activity as tolerated Patient Instructions: Coughing Up Blood (Hemoptysis) (ED), Opioid Safety Activity Restrictions/Additional Instructions: Take antibiotic as directed. Drink plenty of fluids. Follow-up with primary care. Case management will contact you regarding pulmonary follow-up for further evaluation of blood in sputum after coughing. Return to the ER for new concerns or worsening symptoms. Coding Level of Care Code ED Licensed Practical Nurse Clinic Nurse for Tamara Cortez
[2021-10-31 22:29] LABS: Alanine Aminotransferase 21 U/L (0-41); Albumin Level 4.8 g/dL (3.5-5.2); Alkaline Phosphatase 76 IU/L (40-130); Aspartate Amino Transferase 19 U/L (0-40); Blood Urea Nitrogen 13 mg/dL (6-20); Calcium 10.3 mg/dL (8.5-10.5); Carbon Dioxide 22 mmol/L (22-29); Chloride 101 mmol/L (98-107); Globulin 1.9 g/dL (1.3-4.6); Glomerular Filtration Rate 105.5 mL/min (90-130); Glucose 66 mg/dL (65-115); NT Pro B Type Natriuretic Pept 14 pg/mL (0-125); Osmolality Calculated 280 mOsm/kg (285-295); Sodium 136 mmol/L (136-145); Total Bilirubin 0.2 mg/dL (0.15-1.2); Total Protein 6.7 g/dL (6.6-8.7)
[2021-10-31 22:31] LABS: Anion Gap 16.9 (5-19); Potassium 3.9 mmol/L (3.5-5.1)
[2021-10-31 22:42] VITALS: BP 146/86; PULSE 70; RESP 18; O2SAT 98
[2021-10-31] MEDS: doxycycline 100 mg Tablet PO (23:12)
[2021-10-31] MEDS: famotidine 20 mg Tablet 40 MG PO (23:13)
[2021-10-31 23:14] VITALS: PULSE 74; O2SAT 97
--- NOTE | 2021-11-02 10:03 | DCPLANNER ---
Addendum entered by Aleta Shi 11/12/21 15:42: Patient had a follow up appointment scheduled for 11.07.[address] Wahl, heart care - patient did attend appointment. Original Note: media analytics manager had message to schedule a follow up appointment for patient with pulmonology. media analytics manager called [facility], spoke with Noni, gave clinic patients information. A follow up appointment was scheduled for Sunday, November 07, 2021 at 12:[address] Wahl. media analytics manager called patient and gave patient the appointment information.
== END 2021-10-31 23:16 | disposition home or self-care (01) ==
PROVIDERS: Emergency Medicine; Emergency Provider Nurse Practitioner Family; PCP Family Medicine
DX: R04.2 Hemoptysis (principal); I10 Essential (primary) hypertension; Z77.22 Contact with and (suspected) exposure to environmental tobacco smoke (acute) (chronic)
CPT/HCPCS: 36415; 71045; 80053; 83880; 84484; 85025; 85378; 85610; 93005; 99283

== ENCOUNTER → 2021-11-22 14:42 | Outpatient (BNVA) | payer MEDICARE, SELFPAY | PROVIDERS: PCP Family Medicine; Visit Provider Internal Medicine Pulmonary Disease | DX: F17.200 Nicotine dependence, unspecified, uncomplicated (principal); J44.9 Chronic obstructive pulmonary disease, unspecified; R04.2 Hemoptysis | CPT/HCPCS: 81000; 85379; 85651; 86140 ==

== ENCOUNTER → 2022-07-29 10:26 | Outpatient (BNVA) | payer MEDICARE, SELFPAY | PROVIDERS: PCP Family Medicine; Visit Provider Nurse Practitioner Family | DX: J44.9 Chronic obstructive pulmonary disease, unspecified (principal); R10.32 Left lower quadrant pain; Z13.6 Encounter for screening for cardiovascular disorders; E55.9 Vitamin D deficiency, unspecified | CPT/HCPCS: 80053; 80061; 81003; 82150; 82306; 83690; 85025 ==

== ENCOUNTER 2022-08-13 13:19 | Outpatient (CLI) | payer MEDICARE, SELFPAY ==
--- NOTE | 2022-08-13 14:30 | CT_ITS ---
WS: [id number] CT ABDOMEN AND PELVIS WITH CONTRAST HISTORY: R10.32 - Left lower quadrant pain TECHNIQUE: Imaging performed of the abdomen and pelvis with IV contrast. Single phase imaging of the abdomen. Coronal and sagittal reformats are submitted. All CT scans at [facility] use at [address] one of these dose optimization techniques: automated exposure control; mA and/or kV adjustment per patient size (includes targeted exams where dose is matched to clinical indication); or iterative re construction. IV CONTRAST: Omnipaque 350; 95 mL IV. Oral contrast: Yes. DLP: 1007.86 mGy.cm COMPARISON: 11/28/2020 Lower thorax: Lung bases are clear. Heart is normal size. Small hiatal hernia. Liver/biliary system: Normal size liver. This is a very tiny cyst adjacent to the middle hepatic vein which is unchanged. No bile duct dilatation. Gallbladder: Status post cholecystectomy. Pancreas: Normal size pancreas and pancreatic duct. No adjacent inflammation. Spleen: Normal size spleen. No mass or infarct. Adrenal glands: Normal. Right kidney: Normal size RIGHT kidney. Nonobstructing calcification measures 8 mm in the mid kidney. RIGHT renal cyst measures 2.3 x 2.0 cm. No solid mass. Left kidney: Normal. Aorta: Mild atherosclerosis with no aneurysm. Lymphadenopathy: None. Free fluid: None. GI tract: Normally distended stomach. No small bowel obstruction. Appendix is normal. Distal sigmoid surgical anastomosis is stable. No mass or obstruction. Abdominal wall: Midline ventral abdominal wall hernia. There are several small hernia defects in the umbilical and periumbilical region. Hernias containing fat only. Pelvis: Well-distended urinary bladder. No definite inguinal hernia. Bones: Posterior lumbar fusion at L3-4. CT/CT abdomen pelvis w con* [id number] IMPRESSION: 1. No acute abdominal or pelvic abnormalities. 2. Multiple small fat-containing hernias in the periumbilical region. Largest is in the LEFT infraumbilical region. These hernias all contain fat. 3. Stable sigmoid surgical anastomosis. 4. Normal appendix. 5. RIGHT renal and hepatic cysts are stable.
[2022-08-13] MEDS: iohexol 350 mg/mL 100 mL Btl PO (14:57)
[2022-08-13] MEDS: iohexol 350 mg/mL 100 mL Btl IV (14:58)
== END 2022-08-13 13:20 | disposition home or self-care (01) ==
LOC: RAD 13:21
PROVIDERS: PCP Nurse Practitioner Family; Visit Provider Nurse Practitioner Family
DX: R10.32 Left lower quadrant pain (principal); K42.9 Umbilical hernia without obstruction or gangrene; K63.89 Other specified diseases of intestine; K76.89 Other specified diseases of liver; N28.1 Cyst of kidney, acquired
CPT/HCPCS: 74177; Q9967

== ENCOUNTER 2024-04-12 08:35 | Outpatient (CLI) | payer MEDICARE, MEDICAID, SELFPAY ==
--- NOTE | 2024-04-12 08:43 | US_ITS ---
WS: [id number] THYROID ULTRASOUND HISTORY: NECK MASS COMPARISON: None available. Right lobe: 5.1 cm x 5.1 cm x 8.7 cm (w x ap x l). Volume: 107.8 cm3. There is a very large slightly hyperechoic mass centered in the RIGHT neck at the thyroid bed. Mass m easures 4.3 x 4.7 x 7.2 cm. There is marked increased vascularity throughout the mass. The thyroid as a separate structure is very difficult to visualize. There are no microcalcifications. Left lobe: 1.6 cm x 1.2 cm x 5.0 cm (w x ap x l). Volume: 4.6 cm3. Normal size and echotexture. No significant or dominant nodules are present. Isthmus: 0.3 cm. US/US thyroid [id number] IMPRESSION: 1. Large hyperechoic, well-circumscribed mass centered in the RIGHT neck in th e expected location of the thyroid. A separate thyroid gland is not identified. This is probably a thyroid nodule measuring 4.3 x 4.7 x 7.2 cm. This can be ev aluated by ENT. Fine-needle aspiration may be be necessary. 2. Negative LEFT thyroid.
== END 2024-04-12 08:36 | disposition home or self-care (01) ==
LOC: RAD 08:37
PROVIDERS: PCP Nurse Practitioner Family; Visit Provider Family Medicine
DX: R22.1 Localized swelling, mass and lump, neck (principal)
CPT/HCPCS: 76536

== ENCOUNTER → 2024-04-28 09:40 | Outpatient (BNVA) | payer MEDICARE, MEDICAID, SELFPAY | PROVIDERS: PCP Nurse Practitioner Family; Visit Provider Surgery | DX: K57.92 Diverticulitis of intestine, part unspecified, without perforation or abscess without bleeding (principal); R10.32 Left lower quadrant pain; K21.9 Gastro-esophageal reflux disease without esophagitis; Z86.010 Personal history of colon polyps; Z87.19 Personal history of other diseases of the digestive system; Z90.49 Acquired absence of other specified parts of digestive tract | CPT/HCPCS: 99204 ==

== ENCOUNTER 2024-05-26 09:22 | Outpatient (CLI) | payer MEDICARE, MEDICAID, SELFPAY ==
--- NOTE | 2024-05-26 09:34 | CTR_ITS ---
PROCEDURE INFORMATION: Exam: CT Neck With Contrast Exam date and time: 05/26/2024 9:54 AM Age: 44 years old Clinical indication: Mass, lump, or swelling in neck; Right; Patient HX: Localized swelling, mass, lump on RT side of neck- bb placed, x 3 months. PT states it pulses and feels pressure on his throat almost like someone is choking him . TECHNIQUE: Imaging protocol: Computed tomography of the neck with contrast. Radiation optimization: All CT scans at this facility use at least one of these dose optimization techniques: automated exposure control; mA and/or kV adjustment per patient size (includes targeted exams where dose is matched to clinical indication); or iterative reconstruction. Contrast material: OMNI 350; Contrast volume: 100 ml; Contrast route: INTRAVENOUS (IV); COMPARISON: US thyroid [id number] 04/12/2024 8:50 AM RADIATION DOSE METRICS: Total DLP (mGy-cm): 173.15 FINDINGS: Salivary glands: Normal. Glands are normal in size. Pharynx: Unremarkable. No significant tonsillar enlargement. Prevertebral and retropharyngeal spaces: Unremarkable. Larynx: Unremarkable. Epiglottis is normal. Thyroid: 7.2 x 4.7 x 4.5 cm hypoenhancing nodule arising from the right thyroid lobe is descending into the cervico- mediastinal junction terminating at the level of the suprasternal notch. The left thyroid lobe and the isthmus are normal in size with no nodules. Trachea: There is mass effect on the trachea due to large right thyroid nodule. There is 15 mm deviation to the left and narrowing of the dnpe-it-dkij diameter of the trachea from normal diameter of 18 mm to 13 mm with no compromise of the anterior-posterior diameter. Lungs: Mild paraseptal emphysema in the apices. Lymph nodes: No lymphadenopathy. Bones/joints: No acute fracture. No suspicious lytic or sclerotic bone lesions. Soft tissues: Unremarkable. CT/CT neck w con* [id number] IMPRESSION: Large right thyroid nodule corresponding to hyperechoic mass documented on ultrasound is producing mass effect on the trachea with 15 mm deviation to the left and mild narrowing of the astb-vp-lsiw diameter (from 18 mm to 13 mm). No lymphadenopathy or other suspicious findings.
[2024-05-26] MEDS: iohexol 350 mg/mL 500 mL Btl (per mL) IV (10:19)
== END 2024-05-26 09:23 | disposition home or self-care (01) ==
PROVIDERS: PCP Nurse Practitioner Family; Visit Provider Specialist
DX: E04.1 Nontoxic single thyroid nodule (principal); R22.1 Localized swelling, mass and lump, neck
CPT/HCPCS: 70491

== ENCOUNTER 2024-06-29 06:38 | Day surgery (SDC) | payer MEDICARE, MEDICAID, SELFPAY ==
--- NOTE | 2024-06-29 05:51 | W.PM.OPSFHP ---
Same Day Surgery H&P Indication for Procedure/HPI DATE OF PROCEDURE: June 29, 2024 CHIEF COMPLAINT/INDICATIONFOR SURGICAL PROCEDURE: history of diverticulitis and reflux PREOP DIAGNOSIS: gerd and diverticular disease PLANNED PROCEDURE: Operation Date: 06/29/24 07:40 Proposed Procedures p EGD(Not Applicable) - Quan Lopez MD s Colonoscopy - 11163, 75532, g0105,K57.92,K21.9(Not Applicable) - Quan Lopez MD Medications/Allergies* Home Medications Medication Instructions Recorded Confirmed Type ssgshon-bknmqkuoayadi-zhgukegi 250 1 tab PO Q6H PRN Migraine Headache 01/15/21 06/24/24 History mg-250 mg-65 mg tablet (Excedrin Migraine) oxycodone-acetaminophen 5 mg-325 0.5 tab PO Q4H PRN Pain 01/16/21 06/24/24 History mg tablet (Endocet) topiramate 50 mg capsule 25 mg PO DAILY 06/28/21 06/24/24 History sprinkle,extended release 24 hr ketoconazole 2 % topical cream 1 applic topical BID 11/07/21 06/24/24 History metoprolol succinate 25 mg 12.5 mg PO DAILY 11/07/21 06/24/24 History tablet,extended release 24 hr omeprazole 40 mg capsule,delayed 40 mg PO DAILY 06/24/24 06/24/24 History release polyethylene glycol 3350 17 4 g PO DAILY 06/24/24 06/24/24 History gram/dose oral powder (Miralax) Allergies/Adverse Reactions Allergy/AdvReac Type Severity Reaction Status Date / Time No Known Allergies Allergy Verified 04/28/24 09:59 Pertinent History/Comorbid Conditions* Medical History (Updated 04/28/24 @ 11:08 by Quan Lopez MD) History of nonmelanoma skin cancer Gallbladder polyp Ventral hernia HTN (hypertension) Diverticulitis Anxiety Hernia Skin cancer of face Surgical History (Updated 06/14/21 @ 14:54 by Jack Evans PA-C) History of colonoscopy 2016 History of umbilical hernia repair 2019 History of bowel resection 2019 History of cholecystectomy 2020 History of back surgery Family History (Updated 10/23/20 @ 16:04 by Bozena Hopson LPN) Diabetes Cancer Father Grandmother Social History Smoking and tobacco/nicotine status: current every day tobacco/nicotine user cigarettes Packs smoked per day: 0.5 Years cigarettes smoked: 22 Second hand smoke exposure: Yes Alcohol intake: never Substance/Drug Use: never Lives independently: Yes Marital status: Single Number of children: 0 service: No Current occupational status: disabled Current gender identity: Male Special elmo needs: No Pertinent Exam Findings alert, oriented x 3, clear to auscultation bilaterally and regular rate & rhythm Recommendations Surgery/Procedure today Coding Level of Care Code Acute Code for [facility] Fwd
[2024-06-29 06:58] VITALS: BP 124/90; PULSE 87; RESP 18; TEMP 36.4; O2SAT 99; BMI 26.9
[2024-06-29] MEDS: sodium chloride 0.9% 1,000 ML 30 ML IV (07:05)
--- NOTE | 2024-06-29 07:07 | ANES.PREANE2 ---
Pre-Anesthetic Assessment Height/Weight: Height 1.73 m Weight 80.286 kg Temp Pulse Resp BP Pulse Ox O2 Del Method 97.5 F L 87 18 124/90 99 Room Air 06/29/24 06:58 06/29/24 06:58 06/29/24 06:58 06/29/24 06:58 06/29/24 06:58 06/29/24 06:58 Preop Diagnosis: gerd and diverticular disease Operation Date: 06/29/24 07:40 Proposed Procedures p EGD(Not Applicable) - Quan Lopez MD s Colonoscopy - 39432, 49118, g0105,K57.92,K21.9(Not Applicable) - Quan Lopez MD Familial anesthetic complications: none Was Beta Sivan taken within 24 hours: Yes Was Clonidine taken within 24 hours: N/A Last intake: Intake Last Liquid Date 06/28/24 Last Liquid Time 20:00 Last Solid Date 06/27/24 Last Solid Time 16:00 Social Tobacco and No alcohol Exam alert, oriented x 3, clear to auscultation bilaterally and regular rate & rhythm Airway Mallampati: Class II Dentition: other (7 teeth remaining) Pulmonary Chronic Obstructive Pulmonary Disease CV/HEM Deep Vein Thrombosis (post surgical) and Hypertension GI Gastroesophageal Reflux Disease Metabolic CT Neck with mild narrowing of trachea d/t thyroid nodule, patient denies any difficulty breathing, swallowing,able to lay flat FINDINGS: Salivary glands: Normal. Glands are normal in size. Pharynx: Unremarkable. No significant tonsillar enlargement. Prevertebral and retropharyngeal spaces: Unremarkable. Larynx: Unremarkable. Epiglottis is normal. Thyroid: 7.2 x 4.7 x 4.5 cm hypoenhancing nodule arising from the right thyroid lobe is descending into the cervico- mediastinal junction terminating at the level of the suprasternal notch. The left thyroid lobe and the isthmus are normal in size with no nodules. Trachea: There is mass effect on the trachea due to large right thyroid nodule. There is 15 mm deviation to the left and narrowing of the wzap-hz-oswg diameter of the trachea from normal diameter of 18 mm to 13 mm with no compromise of the anterior-posterior diameter. Lungs: Mild paraseptal emphysema in the apices. Lymph nodes: No lymphadenopathy. Bones/joints: No acute fracture. No suspicious lytic or sclerotic bone lesions. Soft tissues: Unremarkable. CT/CT neck w con* [id number] IMPRESSION: Large right thyroid nodule corresponding to hyperechoic mass documented on ultrasound is producing mass effect on the trachea with 15 mm deviation to the left and mild narrowing of the myso-qz-wjfs diameter (from 18 mm to 13 mm). No lymphadenopathy or other suspicious findings. Anesthetic Plan ASA status: 3 Anesthesia: MAC Risk of > 500 ml blood loss (7ml/kg in children): No Medications/Allergies Home Medications Medication Instructions Recorded Confirmed Last Taken Type apmksxb-wbzfappqvhoyw-uspzyoxc 250 1 tab PO Q6H PRN Migraine Headache 01/15/21 06/24/24 06/28/24 History mg-250 mg-65 mg tablet (Excedrin Migraine) oxycodone-acetaminophen 5 mg-325 0.5 tab PO Q4H PRN Pain 01/16/21 06/24/24 05/09/24 History mg tablet (Endocet) topiramate 50 mg capsule 25 mg PO DAILY 06/28/21 06/24/24 05/10/24 History sprinkle,extended release 24 hr ketoconazole 2 % topical cream 1 applic topical BID 11/07/21 06/24/24 06/28/24 History metoprolol succinate 25 mg 12.5 mg PO DAILY 11/07/21 06/24/24 06/28/24 History tablet,extended release 24 hr ondansetron HCl 4 mg tablet 4 mg PO Q8H PRN nausea and 07/26/22 06/24/24 05/07/24 Rx vomiting #20 tabs omeprazole 40 mg capsule,delayed 40 mg PO DAILY 06/24/24 06/24/24 06/28/24 History release polyethylene glycol 3350 17 4 g PO DAILY 06/24/24 06/24/24 Unknown History gram/dose oral powder (Miralax) Allergies Allergy/AdvReac Type Severity Reaction Status Date / Time No Known Allergies Allergy Verified 04/28/24 09:59 Current Medications Generic Name Dose Route Start Last Admin Trade Name Freq PRN Reason Stop Dose Admin Sodium Chloride 1,000 mls @ 30 mls/hr 06/29/24 06:45 06/29/24 07:05 Sodium Chloride 0.9% IV 30 mls/hr .Q24H MT Administration PFSH Anesthesia Medical History History of nonmelanoma skin cancer Gallbladder polyp Ventral hernia HTN (hypertension) Diverticulitis Anxiety Hernia Skin cancer of face Surgical History History of colonoscopy 2016 History of umbilical hernia repair 2019 History of bowel resection 2019 History of cholecystectomy 2020 History of back surgery Family History Father Cancer Grandmother Cancer Other Diabetes Social History Smoking and tobacco/nicotine status: current every day tobacco/nicotine user cigarettes Packs smoked per day: 0.5 Years cigarettes smoked: 22 Second hand smoke exposure: Yes Alcohol intake: never Substance/Drug Use: never Lives independently: Yes Marital status: Single Number of children: 0 service: No Current occupational status: disabled Current gender identity: Male Special elmo needs: No Data Anesthesia Cardiac Studies: Stress Echocardiogram 08/22/21
[2024-06-29 08:10] VITALS: BP 109/69; PULSE 67; RESP 16; TEMP 36.3; O2SAT 94
[2024-06-29 08:21] VITALS: BP 105/78; PULSE 67; RESP 16; O2SAT 96
[2024-06-29 08:32] VITALS: BP 121/78; PULSE 62; RESP 16; O2SAT 96
--- NOTE | 2024-06-29 08:50 | ANE.PACU2 ---
Inpatient post-anesthesia follow up: Airway intact: Yes Vital signs: Temperature 97.4 F Pulse Rate 62 Respiratory Rate 16 Blood Pressure 121/78 Pulse Oximetry 96 Oxygen Delivery Me thod Room Air Oxygen Flow Rate Fraction of Inspir ed Oxygen Hydration adequate: Yes Nausea and vomiting: No Pain level: 1 Mental status: Baseline
== END 2024-06-29 08:50 | disposition home or self-care (01) ==
PROVIDERS: PCP Family Medicine; Visit Provider Surgery
PROC: 0DJ08ZZ Inspection of Upper Intestinal Tract, Via Natural or Artificial Opening Endoscopic (ICD-10-PCS; CPT 43235; principal; 2024-06-29 07:40)
PROC: 0DJD8ZZ Inspection of Lower Intestinal Tract, Via Natural or Artificial Opening Endoscopic (ICD-10-PCS; CPT 45378; 2024-06-29 07:40)
DX: K57.92 Diverticulitis of intestine, part unspecified, without perforation or abscess without bleeding (principal); K21.9 Gastro-esophageal reflux disease without esophagitis; D12.6 Benign neoplasm of colon, unspecified; K44.9 Diaphragmatic hernia without obstruction or gangrene; K29.70 Gastritis, unspecified, without bleeding; K29.80 Duodenitis without bleeding; J44.9 Chronic obstructive pulmonary disease, unspecified; Z86.718 Personal history of other venous thrombosis and embolism; I10 Essential (primary) hypertension; F17.210 Nicotine dependence, cigarettes, uncomplicated
CPT/HCPCS: 43239; 45385; 88305; J2704; J7030

== ENCOUNTER → 2024-07-14 09:02 | Outpatient (BNVA) | payer MEDICARE, MEDICAID, SELFPAY | PROVIDERS: PCP Family Medicine; Visit Provider Surgery | DX: Z09 Encounter for follow-up examination after completed treatment for conditions other than malignant neoplasm (principal) | CPT/HCPCS: 99213 ==

== ENCOUNTER → 2024-10-20 08:15 | Outpatient (BNVA) | payer MEDICARE, MEDICAID, SELFPAY | PROVIDERS: PCP Family Medicine; Visit Provider Surgery | DX: Z09 Encounter for follow-up examination after completed treatment for conditions other than malignant neoplasm (principal) | CPT/HCPCS: 99213 ==